=== PATIENT | male | born 2000 | race Two or more races ===

== ENCOUNTER 2019-12-15 17:22 | Emergency (ER) | payer OTHER ==
[~2019-12-15] VITALS: Ht 172.7 cm; Wt 59.0 kg
[2019-12-15 17:29] VITALS: BP 144/87
== END 2019-12-15 19:18 | disposition home or self-care (01) ==
LOC: ER 17:22
DX: S93.401A Sprain of unspecified ligament of right ankle, initial encounter (principal); X50.1XXA Overexertion from prolonged static or awkward postures, initial encounter; Y93.89 Activity, other specified; Y92.89 Other specified places as the place of occurrence of the external cause; Y99.8 Other external cause status
CPT/HCPCS: 29515; 73610